=== PATIENT | male | born 1955 | race Caucasian/White ===

== ENCOUNTER 2017-05-10 02:19 | Inpatient (IN) | payer OTHER ==
[~2017-05-10] VITALS: Ht 188 cm; Wt 132.2 kg
[~2017-05-10 02:19] MED LIST: ASPIRIN EC325 MG PO; ATORVASTATIN CA40 MG PO; ATORVASTATIN CA80 MG PO; CARVEDILOL6.25 MG PO; CLOPIDOGREL75 MG PO; EFFIENT10 MG PO; FENOFIBRATE145 M1 PO; GLYBURIDE5 MG PO; LISINOPRIL5 MG PO; LOPRESSOR25 MG PO; METFORMIN HCL500 M4 PO; METFORMIN HCL500 MG PO; NICOTINE PATCH1 EAC2 TD; NITROSTAT0.4 MG SL
[2017-05-10 03:12] LABS: HEMATOCRIT 40.2 % (38.0-50.0); MCH 29.3 PG (29.0-34.0); MCHC 33.6 G/DL (30.0-36.0); MCV 87.2 FL (86-99); MEAN PLAT.VOLUME 10.1 uM^3 (9.0-12.4); PLATELET COUNT 329 K/uL (156-360); RBC DIS.WIDTH-CV 13.3 % (11.8-14.6); RBC DIS.WIDTH-SD 42.5 % (39-53); RED BLOOD COUNT 4.61 M/uL (4.00-5.50); WHITE BLOOD COUNT 9.5 K/uL (4.1-10.2)
[2017-05-10 03:24] LABS: CHLORIDE 108 mEq/L (99-109); POTASSIUM 4.2 mEq/L (3.7-5.4); SODIUM 139 mEq/L (136-147)
[2017-05-10 03:25] LABS: GLUCOSE 144 mg/dL (70-99)
[2017-05-10 03:27] LABS: ANION GAP 9 MEQ/L (2-14)
[2017-05-10 03:29] LABS: GFR ESTIMATE (CALCULATED) > 59 mL/min/
[2017-05-10 03:30] LABS: UREA NITROGEN (BUN) 18 mg/dL (9-23)
[2017-05-10 03:37] LABS: TROP-I INTERPRETATION NEGATIVE
[2017-05-10] MEDS ORDERED: VITAMIN D32000 UNI1 PO (05:30)
[2017-05-10] MEDS ORDERED: MEN 50 PLUS MU1 EACH PO (05:30)
[2017-05-10] MEDS ORDERED: NOVOLIN,HU100 UNITS/ SC ×2 (05:33→05:34)
[2017-05-10] MEDS ORDERED: LIPITOR40 MG PO (09:06)
[2017-05-10] MEDS ORDERED: METFORMIN HCL500 M1 PO (09:07)
[2017-05-10] MEDS ORDERED: LISINOPRIL10 MG PO (09:07)
[2017-05-10 09:41] VITALS: BP 123/66
[2017-05-10 11:14] LABS: POINT-OF-CARE METER ID UU13113700
[2017-05-10 11:34] VITALS: BP 112/61
[2017-05-10 13:38] LABS: TROP-I INTERPRETATION POSITIVE; TROPONIN-I 1.55 ng/mL (0.0-0.30)
[2017-05-10 15:14] LABS: PROTHROMBIN TIME 11.5 SEC (10.2-12.9)
[2017-05-10 15:17] LABS: PTT 28.3 SEC (25-37)
[2017-05-10 15:18] VITALS: BP 113/61
[2017-05-10 16:19] VITALS: BP 118/58
[2017-05-10 17:15] LABS: POINT-OF-CARE METER ID UU13113781
[2017-05-10 18:35] LABS: TROP-I INTERPRETATION POSITIVE; TROPONIN-I 2.11 ng/mL (0.0-0.30)
[2017-05-10 19:00] VITALS: BP 117/55
[2017-05-10 21:09] LABS: POINT-OF-CARE METER ID UU14314088
[2017-05-10 23:00] VITALS: BP 124/58
[2017-05-11 04:32] VITALS: BP 103/53
[2017-05-11 05:52] LABS: HEMATOCRIT 41.9 % (38.0-50.0); MCH 28.7 PG (29.0-34.0); MCHC 32.7 G/DL (30.0-36.0); MCV 87.8 FL (86-99); MEAN PLAT.VOLUME 10.3 uM^3 (9.0-12.4); PLATELET COUNT 366 K/uL (156-360); RBC DIS.WIDTH-CV 13.5 % (11.8-14.6); RBC DIS.WIDTH-SD 43.6 % (39-53); RED BLOOD COUNT 4.77 M/uL (4.00-5.50); WHITE BLOOD COUNT 10.2 K/uL (4.1-10.2)
[2017-05-11 08:00] VITALS: BP 126/60
[2017-05-11 08:02] LABS: POINT-OF-CARE METER ID UU14174216
[2017-05-11 12:01] VITALS: BP 118/58
[2017-05-11 12:22] LABS: POINT-OF-CARE METER ID UU13113698
[2017-05-11 15:35] LABS: TROP-I INTERPRETATION POSITIVE; TROPONIN-I 1.35 ng/mL (0.0-0.30)
[2017-05-11 16:03] VITALS: BP 136/70
[2017-05-11 17:14] LABS: POINT-OF-CARE METER ID UU14174216
[2017-05-11 19:30] VITALS: BP 114/59
[2017-05-11 21:42] LABS: POINT-OF-CARE METER ID UU14174216
[2017-05-11 22:45] VITALS: BP 104/55
[2017-05-12 04:20] VITALS: BP 103/55
[2017-05-12 07:13] VITALS: BP 115/67
[2017-05-12 07:31] LABS: POINT-OF-CARE METER ID UU14314088
[2017-05-12 10:17] LABS: BASOPHIL COUNT 0.1 K/uL (0-0.1); EOSINOPHIL (%) 1.6 % (0-5); EOSINOPHIL COUNT 0.1 K/uL (0-0.3); HEMATOCRIT 40.6 % (38.0-50.0); IMMATURE GRANULOCYTE (%) 0.7 % (0.0-0.7); IMMATURE GRANULOCYTE COUNT 0.1 K/uL; INSTRUMENT ABS NEUTROPHIL CT 4.2 K/uL; LYMPHOCYTE COUNT 2.6 K/uL (1.0-2.8); MCH 29.8 PG (29.0-34.0); MCHC 33.5 G/DL (30.0-36.0); MEAN PLAT.VOLUME 10.5 uM^3 (9.0-12.4); MONOCYTE (%) 5.8 % (3-12); MONOCYTE COUNT 0.4 K/uL (0-0.8); NEUTROPHIL (%) 56.2 % (45-76); NEUTROPHIL COUNT 4.2 K/uL (1.8-6.4); PLATELET COUNT 322 K/uL (156-360); RBC DIS.WIDTH-CV 13.5 % (11.8-14.6); RBC DIS.WIDTH-SD 44.2 % (39-53); RED BLOOD COUNT 4.56 M/uL (4.00-5.50); WHITE BLOOD COUNT 7.5 K/uL (4.1-10.2)
[2017-05-12 10:38] LABS: ANION GAP 8 MEQ/L (2-14); CHLORIDE 102 MEQ/L (99-109); GFR ESTIMATE (CALCULATED) > 59 mL/min/; GLUCOSE 148 mg/dL (70-99); POTASSIUM 4.3 MEQ/L (3.7-5.4); SAMPLE HEMOLYSIS CHECK 0; SAMPLE ICTERIC CHECK 0; SAMPLE LIPEMIA CHECK 0; SODIUM 138 MEQ/L (136-147); UREA NITROGEN (BUN) 15 mg/dL (9-23)
[2017-05-12 11:00] LABS: POINT-OF-CARE METER ID UU14314088
[2017-05-12 11:05] VITALS: BP 119/58
[2017-05-12] MEDS ORDERED: RANEXA500 MG PO (11:22)
[2017-05-12] MEDS ORDERED: NICORELIEF2 MG BC (11:22)
== END 2017-05-12 12:45 | disposition home or self-care (01) | DRG 282 ==
LOC: EME 02:19 → EDOF 07:44 → ENRESERV 07:49 → 5WEST 09:32 → 4EAST 14:11 → ENRESERV 14:22 → 4EAST 15:57
PROVIDERS: Internal Medicine; Student in an Organized Health Care Education/Training Program
DX: I21.19 ST elevation (STEMI) myocardial infarction involving other coronary artery of inferior wall (principal); I25.700 Atherosclerosis of coronary artery bypass graft(s), unspecified, with unstable angina pectoris; E66.01 Morbid (severe) obesity due to excess calories; E78.5 Hyperlipidemia, unspecified; F17.210 Nicotine dependence, cigarettes, uncomplicated; I25.2 Old myocardial infarction; Z95.1 Presence of aortocoronary bypass graft; Z68.37 Body mass index [BMI] 37.0-37.9, adult; I10 Essential (primary) hypertension; E11.9 Type 2 diabetes mellitus without complications; Z79.4 Long term (current) use of insulin; Z95.5 Presence of coronary angioplasty implant and graft
CPT/HCPCS: 71020; 80048; 82948; 84484; 85025; 85027; 85610; 85730; 93005; 93306; 99281; 99285; J1650; J1815

== ENCOUNTER 2017-09-28 22:33 | Observation (INO) | payer OTHER ==
[~2017-09-28] VITALS: Ht 188 cm; Wt 129.6 kg
[~2017-09-28 22:33] MED LIST changes: +LIPITOR40 MG PO; +LISINOPRIL10 MG PO; +MEN 50 PLUS MU1 EACH PO; +METFORMIN HCL500 M1 PO; +NICORELIEF2 MG BC; +NOVOLIN,HU100 UNITS/ SC; +RANEXA500 MG PO; +VITAMIN D32000 UNI1 PO
[2017-09-28 23:14] LABS: HEMATOCRIT 43.4 % (38.0-50.0); HEMOGLOBIN 14.7 G/DL (12.5-16.6); MCH 29.7 PG (29.0-34.0); MCHC 33.9 G/DL (30.0-36.0); MCV 87.7 FL (86-99); PLATELET COUNT 409 K/uL (156-360); RBC DIS.WIDTH-CV 13.2 % (11.8-14.6); RBC DIS.WIDTH-SD 42.2 % (39-53); RED BLOOD COUNT 4.95 M/uL (4.00-5.50); WHITE BLOOD COUNT 9.6 K/uL (4.1-10.2)
[2017-09-28 23:22] LABS: CHLORIDE 107 mEq/L (99-109); POTASSIUM 4.6 mEq/L (3.7-5.4); SODIUM 139 mEq/L (136-147)
[2017-09-28 23:23] LABS: GLUCOSE 130 mg/dL (70-99)
[2017-09-28 23:27] LABS: CREATININE 1.2 mg/dL (0.6-1.3); GFR ESTIMATE (CALCULATED) > 59 mL/min/ (58.99-99999)
[2017-09-28 23:28] LABS: UREA NITROGEN (BUN) 23 mg/dL (9-23)
[2017-09-28 23:32] LABS: TROP-I INTERPRETATION NEGATIVE; TROPONIN-I 0.03 ng/mL (0.0-0.30)
[2017-09-29] VITALS (7 sets, daily range): BP systolic 112–125; BP diastolic 58–69
[2017-09-29 05:12] LABS: TROP-I INTERPRETATION POSITIVE
[2017-09-29 11:07] LABS: TROP-I INTERPRETATION POSITIVE; TROPONIN-I 2.04 ng/mL (0.0-0.30)
[2017-09-30 04:08] VITALS: BP 106/59
[2017-09-30 06:01] LABS: HEMATOCRIT 41.1 % (38.0-50.0); HEMOGLOBIN 13.6 G/DL (12.5-16.6); MCH 29.4 PG (29.0-34.0); MCHC 33.1 G/DL (30.0-36.0); PLATELET COUNT 369 K/uL (156-360); RBC DIS.WIDTH-CV 13.5 % (11.8-14.6); RBC DIS.WIDTH-SD 44.4 % (39-53); RED BLOOD COUNT 4.62 M/uL (4.00-5.50); WHITE BLOOD COUNT 10.6 K/uL (4.1-10.2)
[2017-09-30 07:09] VITALS: BP 89/55
[2017-09-30 07:29] VITALS: BP 102/63
[2017-09-30 09:30] LABS: CHLORIDE 101 MEQ/L (99-109); POTASSIUM 4.7 MEQ/L (3.7-5.4); SODIUM 137 MEQ/L (136-147)
[2017-09-30 09:46] LABS: GFR ESTIMATE (CALCULATED) > 59 mL/min/ (58.99-99999); GLUCOSE 120 mg/dL (70-99); UREA NITROGEN (BUN) 21 mg/dL (9-23)
[2017-09-30 10:03] LABS: TROP-I INTERPRETATION POSITIVE; TROPONIN-I 3.21 ng/mL (0.0-0.30)
[2017-09-30 10:58] VITALS: BP 104/55
[2017-09-30] MEDS ORDERED: BRILINTA90 MG PO (11:35)
[2017-09-30] MEDS ORDERED: ASPIR-LOW81 MG PO (11:36)
== END 2017-09-30 13:30 | disposition home or self-care (01) ==
LOC: EME 22:33 → ENRESERV 09-29 01:41 → EDOF 09-29 01:41 → 5WEST 09-29 01:41 → ENRESERV 09-29 02:12 → 5WEST 09-29 03:25
PROVIDERS: Hospitalist; Nurse Practitioner Adult Health; Nurse Practitioner Family
DX: I21.4 Non-ST elevation (NSTEMI) myocardial infarction (principal); E11.9 Type 2 diabetes mellitus without complications; E66.9 Obesity, unspecified; F17.210 Nicotine dependence, cigarettes, uncomplicated; E78.5 Hyperlipidemia, unspecified; I10 Essential (primary) hypertension; I25.10 Atherosclerotic heart disease of native coronary artery without angina pectoris; Z95.1 Presence of aortocoronary bypass graft; I25.2 Old myocardial infarction; G89.29 Other chronic pain; M54.9 Dorsalgia, unspecified; K92.1 Melena; Z82.49 Family history of ischemic heart disease and other diseases of the circulatory system; Z90.49 Acquired absence of other specified parts of digestive tract; Z79.4 Long term (current) use of insulin; Z79.82 Long term (current) use of aspirin; Z91.013 Allergy to seafood; Z91.018 Allergy to other foods; Z79.02 Long term (current) use of antithrombotics/antiplatelets; Z95.5 Presence of coronary angioplasty implant and graft
CPT/HCPCS: 71046; 80048; 82272; 82948; 84484; 85027; 85730; 93005; 94640; 99281; 99284; G0378; J1815; J7512